=== PATIENT | male | born 1965 | race Caucasian/White ===

== ENCOUNTER 2022-05-22 09:34 | Outpatient (CLI) | payer MEDICARE, OTHER, SELFPAY | END 2022-05-22 09:35 | disposition home or self-care (01) | PROVIDERS: PCP Family Medicine; Visit Provider Family Medicine | DX: E78.00 Pure hypercholesterolemia, unspecified (principal); I10 Essential (primary) hypertension; N40.0 Benign prostatic hyperplasia without lower urinary tract symptoms; Z12.5 Encounter for screening for malignant neoplasm of prostate; R07.89 Other chest pain | CPT/HCPCS: 80053; 80061; 84153 ==

== ENCOUNTER 2022-08-28 12:42 | Outpatient (CLI) | payer MEDICARE, OTHER, SELFPAY ==
--- NOTE | 2022-08-28 15:04 | W.PM.STED ---
Stress Test Note Date Date Seen: 08/28/22 Date of test: 08/28/22 Providers Primary care provider: Ernesto Manzano Stress test physician: Carl Cope Stress Test Note Stress test ordered: Stress Echo Indication for test: Chest pain Results discussion: Patient is a very nice 49-year-old gentleman who presents here for evaluation and stress echo, as ordered by his primary care physician, cardiac stress test medical history form is reviewed, test is discussed with the patient and after this he accepts I would like to proceed. Pretest EKG shows normal sinus rhythm with occasional PVCs, no acute ST wave changes are noted blood pressure 164 and 84, with the ventricular rate of 86. Patient is exercised for a total time of 6 minutes, achieved a metabolic equivalent of 7.1 Mets, XR was 159, which is 115% of the maximum. Maximum blood pressure was 191/46, test is terminated because of fulfillment of protocol, did during this test there is no ST wave changes suggestive ischemia, there was no dysrhythmias, any recovered normally in the recovery.. He did have some mild shortness of breath and fatigue. Impression: Negative electrographic portion of stress echo, Follow up suggested: Await echo images they will be read by Cardiology clinical correlation will be needed, patient recovered normally and left this testing facility back to baseline in excellent condition
[2022-08-28 16:33] VITALS: BP 164/75; PULSE 108
== END 2022-08-28 12:43 | disposition home or self-care (01) ==
LOC: STRESS 12:44
PROVIDERS: PCP Family Medicine; Visit Provider Family Medicine
DX: R07.9 Chest pain, unspecified (principal); J45.909 Unspecified asthma, uncomplicated; J44.9 Chronic obstructive pulmonary disease, unspecified; I10 Essential (primary) hypertension
CPT/HCPCS: 93016; 93325; 93351

== ENCOUNTER 2022-09-11 08:21 | Outpatient (CLI) | payer MEDICARE, OTHER, SELFPAY | END 2022-09-11 08:22 | disposition home or self-care (01) | PROVIDERS: PCP Family Medicine; Visit Provider Family Medicine | DX: Z00.00 Encounter for general adult medical examination without abnormal findings (principal); I10 Essential (primary) hypertension; E78.00 Pure hypercholesterolemia, unspecified | CPT/HCPCS: 80053; 80061 ==

== ENCOUNTER 2023-06-04 09:37 | Outpatient (CLI) | payer MEDICARE, OTHER, SELFPAY | END 2023-06-04 09:38 | disposition home or self-care (01) | PROVIDERS: PCP Family Medicine; Visit Provider Family Medicine | DX: D64.9 Anemia, unspecified (principal); E78.00 Pure hypercholesterolemia, unspecified; I10 Essential (primary) hypertension; J44.9 Chronic obstructive pulmonary disease, unspecified; J45.909 Unspecified asthma, uncomplicated | CPT/HCPCS: 80053; 80061; G0103 ==

== ENCOUNTER 2023-10-08 12:11 | Outpatient (CLI) | payer MEDICARE, OTHER, SELFPAY | END 2023-10-08 12:12 | disposition home or self-care (01) | LOC: LKVREF 12:13 | PROVIDERS: PCP Family Medicine; Visit Provider Family Medicine | DX: D64.9 Anemia, unspecified (principal) | CPT/HCPCS: 82728 ==

== ENCOUNTER 2024-06-11 10:33 | Outpatient (CLI) | payer MEDICARE, OTHER, SELFPAY | END 2024-06-11 10:34 | disposition home or self-care (01) | PROVIDERS: PCP Family Medicine; Visit Provider Family Medicine | DX: I10 Essential (primary) hypertension (principal); E78.00 Pure hypercholesterolemia, unspecified; Z12.5 Encounter for screening for malignant neoplasm of prostate | CPT/HCPCS: 80053; 80061; G0103 ==

== ENCOUNTER 2024-12-17 09:47 | Outpatient (CLI) | payer MEDICARE, OTHER, SELFPAY | END 2024-12-17 09:48 | disposition home or self-care (01) | PROVIDERS: PCP Family Medicine; Visit Provider Family Medicine | DX: Z00.00 Encounter for general adult medical examination without abnormal findings (principal); E78.00 Pure hypercholesterolemia, unspecified; D64.9 Anemia, unspecified; Z78.9 Other specified health status | CPT/HCPCS: 80061; 82607; 82728; 83540; 83550 ==